=== PATIENT | female | born 1930 | race Caucasian/White ===

== ENCOUNTER 2019-05-28 08:39 | Inpatient (IN) | payer MEDICARE, BC ==
[~2019-05-28] VITALS: Ht 157.5 cm; Wt 78.0 kg
[2019-05-28] MEDS ORDERED: Meclizine 25mg tab ORAL ONE ×2 (08:45→09:45)
--- NOTE | 2019-05-28 08:47 | NUR ---
ED Nurse Note: Pt brought in with ambulance from home. Pt c/o N&V since 0700 and has vomited 4 times. Pt states she has no pain. Pt states she is extremely dizzy. Pt set up on monitor. VSS.
[2019-05-28 08:56] LABS: BASOPHILS % (AUTO) 0.5 % (0.0-2.0); EOSINOPHILS % (AUTO) 1.3 % (0.0-3.0); HEMATOCRIT 40.6 % (37.0-47.0); HEMOGLOBIN 13.7 G/DL (12.0-16.0); LYMPHOCYTES % (AUTO) 11.6 % (20.0-45.0); MEAN CORPUSCULAR VOLUME 96 FL (80-99); MONOCYTES % (AUTO) 4.7 % (1.0-10.0); NEUTROPHILS % (AUTO) 81.9 % (45.0-75.0); PLATELET COUNT 268 K/UL (150-450); RED BLOOD COUNT 4.24 M/UL (4.20-5.40); RED CELL DISTRIBUTION WIDTH 11.8 % (11.6-14.8); WHITE BLOOD COUNT 11.2 K/UL (4.8-10.8)
[2019-05-28 08:57] VITALS: BP 131/102
[2019-05-28] MEDS ORDERED: LISINOPRIL30 MG ORAL (09:03)
[2019-05-28] MEDS ORDERED: CRESTOR10 M2 ORAL (09:03)
[2019-05-28] MEDS ORDERED: BYSTOLIC2.5 MG ORAL (09:03)
--- NOTE | 2019-05-28 09:04 | NUR ---
ED Nurse Note: XR at bedside. Pt being taken to CT via gurney.
[2019-05-28 09:20] LABS: ANION GAP 12 mmol/L (5-15); BLOOD UREA NITROGEN 18 mg/dL (7-18); CALCIUM 8.8 MG/DL (8.5-10.1); CARBON DIOXIDE 21 MMOL/L (21-32); CHLORIDE 110 MMOL/L (98-107); CREATININE 0.8 MG/DL (0.55-1.30); POTASSIUM 3.8 MMOL/L (3.5-5.1); SODIUM 143 MMOL/L (136-145)
[2019-05-28 09:25] LABS: ALANINE AMINOTRANSFERASE 25 U/L (12-78); ALBUMIN 3.5 G/DL (3.4-5.0); ALBUMIN/GLOBULIN RATIO 1.1 (1.0-2.7); ASPARTATE AMINO TRANSFERASE 21 U/L (15-37); BILIRUBIN,TOTAL 0.5 MG/DL (0.2-1.0)
[2019-05-28 09:35] LABS: APPEARANCE,URINE SLIGHTLY CLOUDY; BILIRUBIN, URINE NEGATIVE (NEGATIVE); GLUCOSE, URINE (UA) 1+ (NEGATIVE); KETONES,URINE 2+ (NEGATIVE); LEUKOCYTE ESTERASE ,URINE 1+ (NEGATIVE); NITRITE,URINE NEGATIVE (NEGATIVE); PH,URINE 5 (4.5-8.0); PROTEIN,URINE 1+ (NEGATIVE); UROBILINOGEN,URINE NORMAL MG/DL (0.0-1.0)
--- NOTE | 2019-05-28 09:35 | NUR ---
ED Nurse Note: MD notified that pt vomiting/retching.
[2019-05-28] MEDS ORDERED: TransDerm Scop 1.5mg/72HR Patch TDERMAL ONE (09:45)
--- NOTE | 2019-05-28 09:48 | Diagnostic Imaging Report ---
Indication: Headache Technique: Contiguous 5 mm thick transaxial imaging of the head obtained in a Siemens Sensation [address] scanner. Soft tissue and bone windows generated. Automatic Exposure Control was utilized. Total Dose length Product (DLP): 1269.[address] Dose Index Volume (CTDIvol): 62.7 mGy Comparison: none Findings: There is moderate prominence of the ventricles, basal cisterns, and cerebral sulci consistent with atrophy. Moderate, nonspecific, white matter hypoattenuation is noted throughout the brain consistent with chronic small vessel disease. There is no midline shift, edema, acute hemorrhage, mass effect, or abnormal extra-axial fluid collections. Bones are unremarkable. Impression: No acute intracranial bleed, mass effect or edema. Moderate atrophy of the brain. Evidence of chronic small vessel disease involving white matter tracts. The CT scanner at [facility] is accredited by the [employer] and the scans are performed using dose optimization techniques as appropriate to a performed exam including Automatic Exposure control.
--- NOTE | 2019-05-28 09:49 | Emergency Room Report ---
History of Present Illness General Chief Complaint: Dizziness Source: Patient Present Illness HPI This patient is brought in accompanied by her daughter. This morning around 6: 30 AM she began reading and suddenly developed a spinning sensation with nausea and vomiting. Since that time she has had the same spinning with recurrent episodes of nausea and vomiting. She states that her nausea is persistent. She has never had symptoms like this in the past. She denies weakness. She denies headache. She denies chest pain or shortness of breath. She denies neck pain. She has no other complaints. Allergies: Coded Allergies: PENICILLINS (Unverified Allergy, Unknown, 05/28/19) Patient History Past Medical History: see triage record, HTN, other - HLP Social History: Denies: smoking, alcohol use, drug use Reviewed Nursing Documentation: PMH: Agreed; PSxH: Agreed Nursing Documentation-PMH Past Medical History: No History, Except For Hx Cardiac Problems: Yes - high cholesterol Hx Hypertension: Yes Review of Systems All Other Systems: negative except mentioned in HPI Physical Exam Vital Signs Date Time Temp Pulse Resp B/P (MAP) Pulse Ox O2 Delivery O2 Flow Rate FiO2 05/28/19 08:34 97.3 78 18 140/88 (105) 99 Room Air 05/28/19 09:00 100 Sp02 EP Interpretation: reviewed, normal General Appearance: no apparent distress, alert, GCS 15, non-toxic Head: normocephalic, atraumatic Eyes: bilateral eye normal inspection, bilateral eye PERRL ENT: hearing grossly normal, normal pharynx, no angioedema, normal voice Neck: full range of motion, supple/symm/no masses Respiratory: chest non-tender, lungs clear, normal breath sounds, no respiratory distress, no retraction, no accessory muscle use, speaking full sentences Cardiovascular #1: regular rate, rhythm, no edema Gastrointestinal: normal bowel sounds, non tender, soft, non-distended, no guarding, no rebound Rectal: deferred Musculoskeletal: normal inspection, back normal, normal range of motion, non- tender Neurologic: alert, motor strength/tone normal, oriented x3, sensory intact, responsive, speech normal, other - Unable to fully assess cerebellar as any movement causes the patient to vomit. Psychiatric: judgement/insight normal, memory normal, mood/affect normal, no suicidal/homicidal ideation Skin: no rash, normal color Medical Decision Making Diagnostic Impression: Primary Impression: Vertigo Additional Impression: Hyperglycemia ER Course This patient is found to be hyperglycemic with a blood sugar over 200. Further discussion with her primary care physician and she has never had elevated blood sugars in the past. This could be new onset diabetes. Further, the patient has severe vertigo and given the patient's age I am concerned that she will be unable to safely navigate her home. I am concerned she could fall and break her hip. She required multiple medications to treat her vertigo. CT of the head was obtained which is unremarkable. I did obtain an MRI brain Laboratory Tests Test 05/28/19 08:45 05/28/19 09:20 White Blood Count 11.2 K/UL (4.8-10.8) H Red Blood Count 4.24 M/UL (4.20-5.40) Hemoglobin 13.7 G/DL (12.0-16.0) Hematocrit 40.6 % (37.0-47.0) Mean Corpuscular Volume 96 FL (80-99) Mean Corpuscular Hemoglobin 32.4 PG (27.0-31.0) H Mean Corpuscular Hemoglobin Concent 33.8 G/DL (32.0-36.0) Red Cell Distribution Width 11.8 % (11.6-14.8) Platelet Count 268 K/UL (150-450) Mean Platelet Volume 6.3 FL (6.5-10.1) L Neutrophils (%) (Auto) 81.9 % (45.0-75.0) H Lymphocytes (%) (Auto) 11.6 % (20.0-45.0) L Monocytes (%) (Auto) 4.7 % (1.0-10.0) Eosinophils (%) (Auto) 1.3 % (0.0-3.0) Basophils (%) (Auto) 0.5 % (0.0-2.0) Prothrombin Time 10.8 SEC (9.30-11.50) Prothrombin Time INR 1.0 (0.9-1.1) PTT 22 SEC (23-33) L Sodium Level 143 MMOL/L (136-145) Potassium Level 3.8 MMOL/L (3.5-5.1) Chloride Level 110 MMOL/L (98-107) H Carbon Dioxide Level 21 MMOL/L (21-32) Anion Gap 12 mmol/L (5-15) Blood Urea Nitrogen 18 mg/dL (7-18) Creatinine 0.8 MG/DL (0.55-1.30) Estimate Glomerular Filtration Rate mL/min (>60) Glucose Level 216 MG/DL (74-106) H Calcium Level 8.8 MG/DL (8.5-10.1) Total Bilirubin 0.5 MG/DL (0.2-1.0) Aspartate Amino Transferase (AST) 21 U/L (15-37) Alanine Aminotransferase (ALT) 25 U/L (12-78) Alkaline Phosphatase 67 U/L (46-116) Troponin I 0.000 ng/mL (0.000-0.056) Total Protein 6.7 G/DL (6.4-8.2) Albumin 3.5 G/DL (3.4-5.0) Globulin 3.2 g/dL Albumin/Globulin Ratio 1.1 (1.0-2.7) Urine Color Yellow Urine Appearance Slightly cloudy Urine pH 5 (4.5-8.0) Urine Specific [place] 1.020 (1.005-1.035) Urine Protein 1+ (NEGATIVE) H Urine Glucose (UA) 1+ (NEGATIVE) H Urine Ketones 2+ (NEGATIVE) H Urine Blood 1+ (NEGATIVE) H Urine Nitrite Negative (NEGATIVE) Urine Bilirubin Negative (NEGATIVE) Urine Urobilinogen Normal MG/DL (0.0-1.0) Urine Leukocyte Esterase 1+ (NEGATIVE) H Urine RBC 2-4 /HPF (0 - 2) H Urine WBC 2-4 /HPF (0 - 2) Urine Squamous Epithelial Cells Few /LPF (NONE/OCC) Urine Bacteria Few /HPF (NONE) EKG Diagnostic Results Rate: normal Rhythm: NSR ST Segments: no acute changes Rhythm Strip Diag. Results EP Interpretation: yes Rate: 70's Rhythm: NSR, no PVC's, no ectopy Chest X-Ray Diagnostic Results Chest X-Ray Diagnostic Results : Chest X-Ray Ordered: Yes # of Views/Limited/Complete: 1 View Indication: Other EP Interpretation: Yes Interpretation: no consolidation, no effusion, no pneumothorax, no acute cardiopulmonary disease Impression: No acute disease Electronically Signed by: Elissa Fink, CT/MRI/US Diagnostic Results CT/MRI/US Diagnostic Results : Imaging Test Ordered: CT head, MRI Brain Impression No acute findings. Specifically no intracranial bleed, mass effect or edema. See official report. Last Vital Signs Date Time Temp Pulse Resp B/P (MAP) Pulse Ox O2 Delivery O2 Flow Rate FiO2 05/28/19 09:00 69 16 Room Air 100 05/28/19 08:57 97.3 131/102 98 Disposition: ADMITTED INPATIENT Condition: Stable Referrals: NON PHYSICIAN (PCP) Elissa Fink DO May 28, 2019 09:49
[2019-05-28 09:55] LABS: ALKALINE PHOSPHATASE 67 U/L (46-116)
[2019-05-28 09:56] LABS: COLOR,URINE YELLOW
[2019-05-28] MEDS ORDERED: Metoclopramide 10mg/2ml Inj IVP ONE (10:00)
--- NOTE | 2019-05-28 10:10 | NUR ---
ED Nurse Note: patient taken to MRI in a rney with Aj MORRISSEY TECH
--- NOTE | 2019-05-28 11:00 | NUR ---
ED Nurse Note: patient transferred back to room 5 without complication. daughter at bedside. patient back on the monitor.
--- NOTE | 2019-05-28 12:33 | Diagnostic Imaging Report ---
Indication: Dyspnea Comparison: None A single view chest radiograph was obtained. Findings: Cardiomediastinal appearance is within normal limits for age. The lungs are clear. Pulmonary vascularity is appropriate. The diaphragmatic contour is smooth and costophrenic angles are sharp. No pleural effusions are identified. The bones are osteopenic. Impression: No acute findings
--- NOTE | 2019-05-28 13:05 | NUR ---
ED Nurse Note: report given to Ade FISHER, endorsed all plan of care to Ade FISHER.
[2019-05-28 13:15] VITALS: BP 126/79
--- NOTE | 2019-05-28 13:15 | Diagnostic Imaging Report ---
Indication: Dizziness Technique: The head was imaged in a 1.5 Liz magnet. Sequences obtained include sagittal and axial T1 FLAIR, axial T2 fast spin echo with fat saturation, axial T2* GRE, axial T2 FLAIR, diffusion and ADC map. Comparison: None Findings: There is mild prominence of the sulci, ventricles, and basal cisterns consistent with atrophy. Mild, nonspecific T2 hyperintensity noted within white matter. This may be due to chronic small vessel disease. There is no restricted diffusion. Ugarte-white differentiation is normal. There is no mass effect, midline shift, edema, or hemorrhage. There are no abnormal extra-axial or intra-axial fluid collections. The corpus callosum and sella are unremarkable. The brainstem and cerebellum are unremarkable. Bone marrow signal within the visualized osseous structures appears age appropriate and unremarkable otherwise. There is minimal mucosal thickening within the visualized paranasal sinuses. Impression: No acute intracranial findings. Mild atrophy and evidence of chronic small vessel disease involving white matter tracts.
--- NOTE | 2019-05-28 13:30 | NUR ---
NURSE NOTES: Pt came up to unit via gurney w/daughter at bedside and all belongings accounted for. Pt A&Ox4, VSS, and in no apparent distress; IV site intact/asymptomatic & H/L'd and skin intact. Pt c/o dizziness when she changes position or attempts to ambulate. Oriented pt and family member to room and communicated to them that I would contact Dr. Tatum for admission orders. Will continue to monitor.
[2019-05-28] MEDS ORDERED: Meclizine 25mg tab ORAL PRN (14:00)
[2019-05-28 16:00] VITALS: BP 143/56
[2019-05-28] MEDS: Bystolic 2.5mg Tab ORAL SCH (17:42)
[2019-05-28] MEDS ORDERED: LORazepam Inj 2mg/ml 1ml IV SCH (19:15)
--- NOTE | 2019-05-28 19:15 | NUR ---
HAND-OFF: Report given to NATALIA Dash.
--- NOTE | 2019-05-28 19:18 | History & Physical ---
History and Physical History & Physicial [id number] Abebe Tatum MD May 28, 2019 19:18
--- NOTE | 2019-05-28 19:30 | NUR ---
NURSE NOTES: Received report & pt from NATALIA Booker. Pt lying in bed, a&ox4, in room air. No s/s of acute distress & no /co pain at this time. Skin intact. IV site intact & H/L'd. Bed in lowest position, bed alarm on, call light within reach. Will continue to monitor.
[2019-05-28] MEDS: Meclizine 25mg tab ORAL SCH (19:54)
[2019-05-28 20:00] VITALS: BP 122/65
[2019-05-28] MEDS: Atorvastatin 20mg tab ORAL SCH (20:05)
--- NOTE | 2019-05-28 20:15 | History and Physical Report ---
DATE OF ADMISSION: 05/28/2019 REASON FOR ADMISSION: Severe vertigo. HISTORY OF PRESENT ILLNESS: The patient is a very pleasant 88-year-old white female who has been in her usual state of health until today when she started to have some severe vertigo after she drank her coffee in the morning. At that point she describes as a severe vertigo and some imbalance associated with some nausea and vomiting, also has been having some daily diarrhea after she is drinking her coffee which is happening with a cream. She presented to the emergency room of [facility], underwent CT scan of the head which did not show any abnormalities, also subsequently underwent an MRI of the brain, which also did not show any signs of a stroke. She was given some meclizine and scopolamine and since she is still very unsteady and having the vertigo. It was decided to be admitted. The other factor that we found that in the ER was the fact that she had a blood sugar in the range of 216. She has never been known to be diabetic. PAST MEDICAL HISTORY: Significant for hypertension and hyperlipidemia. She also has had episodes of influenza few months ago associated with some pneumonia, also has had previous diverticulitis. PAST SURGICAL HISTORY: None. MEDICATIONS: Includes lisinopril 30 mg p.o. daily, Bystolic 5 mg p.o. daily, Crestor 10 mg p.o. at bedtime. ALLERGIES: Penicillin. SOCIAL HISTORY: Does not smoke. Does not drink alcohol. No drugs. She has three children. 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 FAMILY HISTORY: Noncontributory. REVIEW OF SYSTEMS: GENERAL: She has not had any significant weight change. Denies any chills, fever. CARDIOVASCULAR: Denies any chest pain, dyspnea with exertion or orthopnea. SKIN: Denies any rash or photosensitivity. MUSCULOSKELETAL: Denies any arthralgia or myalgia. URINARY: No urinary foaminess, hematuria, or dysuria. SKIN: Denies any rash or photosensitivity. NEUROLOGIC: She has had very impressive vertigo associated with some nausea and vomiting. GASTROINTESTINAL: Denies any melena or hematochezia. She has been having some daily diarrhea for the past 6 months, also some nausea and vomiting which happened today. ENDOCRINE: Never been diagnosed with diabetes mellitus. No polydipsia, polyuria, cold or heat intolerance. The remainder of the review of the systems has been essentially negative. PHYSICAL EXAMINATION: GENERAL: She does not seem to be in much acute distress. VITAL SIGNS: Blood pressure is 143/56, pulse of 62, respirations 18, temperature 97.3 HEENT: Head is atraumatic. Eyes, pupils are reactive to light. No evidence of papilledema. Ears, canals are clear. Tympanic membranes are intact. Nose, nares are patent. Denies any nasal discharge. Throat without inflammation or exudates. NECK: Supple. Jugular venous distention is within normal limits. No cervical adenopathy. No thyromegaly. HEART: Regular rhythm. No gallop. LUNGS: Clear to auscultation. ABDOMEN: Supple. Bowel sounds positive. No hepatosplenomegaly. EXTREMITIES: Lower extremity shows no cyanosis or clubbing. No pedal edema. NEUROLOGICAL: Moving her head is causing nystagmus towards the right side. Deep tendon reflexes are symmetrically present. There is no focal neurological deficit present otherwise. LABORATORY DATA: Showing a sodium 143, potassium 3.8, chloride 110, carbon dioxide 21, BUN is 12, glucose 216, calcium 8.8. LFTs within normal range. WBC 11.2, hemoglobin is 13.7, hematocrit 40.6, and platelets of 268. Urinalysis is showing 2 to 4 rbc's, 2 to 4 wbc's, specific gravity 1.020, pH of 5, and 1+ protein. IMPRESSION: 1. Impressive vertigo most likely peripheral vertigo. I am suspecting labyrinthitis versus benign positional vertigo. Meniere disease needs to be ruled out which is less likely. 2. She has some degree of hyperglycemia consistent with possible underlying diabetes mellitus. 3. Hypertension which is well controlled. PLAN: I am going to give her a dose of Ativan 0.5 mg IV just one time dose. We are going to start her on some normal saline with 40 mEq of KCl per liter at 50 mL/hour. She is going to be put on scheduled meclizine 25 mg every 6 hours and I am going to also check a hemoglobin A1c on her. Hopefully she can be discharged soon. After her discharge, she needs to follow up with ENT specialist. Abebemarimar Tatum M.D. DR: Karl JOB#: [id number] CC:
[2019-05-28] MEDS: D5NS w/KCl 40mEq 1000ml 1,000 ML IV SCH (20:55)
[2019-05-29] VITALS: BP 124/57
[2019-05-29] MEDS: Meclizine 25mg tab ORAL SCH ×4 (01:15→18:14)
[2019-05-29 04:00] VITALS: BP 141/60
[2019-05-29 06:14] LABS: BASOPHILS % (AUTO) 0.9 % (0.0-2.0); EOSINOPHILS % (AUTO) 3.1 % (0.0-3.0); HEMATOCRIT 36.1 % (37.0-47.0); HEMOGLOBIN 12.2 G/DL (12.0-16.0); LYMPHOCYTES % (AUTO) 14.9 % (20.0-45.0); MEAN CORPUSCULAR VOLUME 96 FL (80-99); MONOCYTES % (AUTO) 9.7 % (1.0-10.0); NEUTROPHILS % (AUTO) 71.4 % (45.0-75.0); PLATELET COUNT 226 K/UL (150-450); RED BLOOD COUNT 3.76 M/UL (4.20-5.40); RED CELL DISTRIBUTION WIDTH 11.8 % (11.6-14.8); WHITE BLOOD COUNT 7.2 K/UL (4.8-10.8)
[2019-05-29 06:39] LABS: ALANINE AMINOTRANSFERASE 22 U/L (12-78); ALBUMIN 3.1 G/DL (3.4-5.0); ALBUMIN/GLOBULIN RATIO 1.1 (1.0-2.7); ALKALINE PHOSPHATASE 57 U/L (46-116); ANION GAP 10 mmol/L (5-15); ASPARTATE AMINO TRANSFERASE 19 U/L (15-37); BILIRUBIN,TOTAL 0.4 MG/DL (0.2-1.0); BLOOD UREA NITROGEN 15 mg/dL (7-18); CALCIUM 8.4 MG/DL (8.5-10.1); CARBON DIOXIDE 24 MMOL/L (21-32); CHLORIDE 113 MMOL/L (98-107); CREATININE 0.7 MG/DL (0.55-1.30); SODIUM 147 MMOL/L (136-145)
--- NOTE | 2019-05-29 07:25 | NUR ---
HAND-OFF: Report given to NATALIA Booker. Pt in stable condition.
--- NOTE | 2019-05-29 07:30 | NUR ---
NURSE NOTES: Pt lying in bed w/bed in lowest position and call light within reach. Pt A&Ox4, VSS, and in no apparent distress; pt presently denies any dizziness. IV site intact/asymptomatic w/IVF infusing and skin intact. Will continue to monitor.
[2019-05-29 08:00] VITALS: BP 138/68
[2019-05-29] MEDS: Bystolic 2.5mg Tab ORAL SCH ×2 (08:41→18:14)
[2019-05-29] MEDS: Lisinopril 10mg tab ORAL SCH (08:41)
[2019-05-29 11:45] VITALS: BP 149/72
--- NOTE | 2019-05-29 13:07 | Cardiology Report ---
APPROVED REPORT EKG Measurement Heart [id number] MD [id number] Normal sinus rhythm Normal ECG
--- NOTE | 2019-05-29 16:01 | NUR ---
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 97.4 HR 78 RR 18 B/P 140/88 WBC 11.2 GLU 216 UA+ PROTEIN, KETONES,BLOOD,LEUKOCYTE ESTERASE,RBC,WBC BACTERIA HEAD CT- NEGATIVE BRAIN MRI= NEGATIVE CXR= NO ACUTE PROCESS IS: MECLIZINE IV BOLUS NS X 50OML ADMITTED TO MED/SURG@ 1307 MED/SURG STATUS DCP RETURN HOME
[2019-05-29 16:12] VITALS: BP 139/65
--- NOTE | 2019-05-29 16:42 | General Progress Note ---
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 Metformin 500 mg po BID Hope D/C in AM Subjective Allergies: Coded Allergies: PENICILLINS (Unverified Allergy, Unknown, 05/28/19) Subjective She is still unsteady on her feet, no more nasea, HGB A1C was 6.3% Objective Last 24 Hour Vital Signs Date Time Temp Pulse Resp B/P (MAP) Pulse Ox O2 Delivery O2 Flow Rate FiO2 05/29/19 16:12 98.9 62 19 139/65 (89) 95 05/29/19 11:45 98.5 64 21 149/72 (97) 99 05/29/19 09:00 Room Air 05/29/19 08:41 138/68 05/29/19 08:00 97.8 84 16 138/68 (91) 95 05/29/19 04:00 98.1 61 16 141/60 (87) 93 05/29/19 00:00 98.0 74 16 124/57 (79) 95 05/28/19 21:00 Room Air 05/28/19 20:00 97.3 81 18 122/65 (84) 93 Intake and Output 05/28/19 05/29/19 19:00 07:00 Intake Total 980 ml 740 ml Balance 980 ml 740 ml Intake Oral 480 ml 240 ml IV Total 500 ml 500 ml # Voids 1 3 Laboratory Tests 05/29/19 04:45: White Blood Count 7.2, Red Blood Count 3.76L, Hemoglobin 12.2, Hematocrit 36.1L , Mean Corpuscular Volume 96, Mean Corpuscular Hemoglobin 32.6H, Mean Corpuscular Hemoglobin Concent 34.0, Red Cell Distribution Width 11.8, Platelet Count 226, Mean Platelet Volume 6.1L, Neutrophils (%) (Auto) 71.4, Lymphocytes ( %) (Auto) 14.9L, Monocytes (%) (Auto) 9.7, Eosinophils (%) (Auto) 3.1H, Basophils (%) (Auto) 0.9, Sodium Level 147H, Potassium Level 4.0, Chloride Level 113H, Carbon Dioxide Level 24, Anion Gap 10, Blood Urea Nitrogen 15, Creatinine 0.7, Estimat Glomerular Filtration Rate , Glucose Level 107#H, Hemoglobin A1c 6.3H, Calcium Level 8.4L, Total Bilirubin 0.4, Aspartate Amino Transf (AST/SGOT) 19, Alanine Aminotransferase (ALT/SGPT) 22, Alkaline Phosphatase 57, Total Protein 5.9L, Albumin 3.1L, Globulin 2.8, Albumin/ Globulin Ratio 1.1 Height (Feet): 5 Height (Inches): 2.00 Weight (Pounds): 150 General Appearance: WD/WN, no apparent distress EENT: PERRL/EOMI Neck: non-tender Cardiovascular: normal peripheral pulses, no JVD Respiratory/Chest: lungs clear, normal breath sounds Abdomen: normal bowel sounds, non tender Extremities: normal range of motion Neurologic: other - Vertigo, nystagmus Abebe Brower MD May 29, 2019 16:42
[2019-05-29] MEDS: D5NS w/KCl 40mEq 1000ml 1,000 ML IV SCH (17:10)
[2019-05-29] MEDS: metFORMIN 500mg tab ORAL SCH (18:11)
--- NOTE | 2019-05-29 19:36 | NUR ---
HAND-OFF: Report given to NATALIA Dash.
--- NOTE | 2019-05-29 19:37 | NUR ---
NURSE NOTES: Received report & pt from NATALIA Booker. Pt lying in bed, a&ox4, in room air. No s/s of acute distress & no c/o pain at this time. Skin intact. IV site intact & H/L'd. Bed in lowest position, bed alarm on, call light within reach. Will continue to monitor.
[2019-05-29 20:00] VITALS: BP 122/62
[2019-05-29] MEDS: Atorvastatin 20mg tab ORAL SCH (21:19)
[2019-05-30] VITALS: BP 103/66
[2019-05-30] MEDS: Meclizine 25mg tab ORAL SCH ×3 (01:00→13:46)
[2019-05-30 04:00] VITALS: BP 154/68
--- NOTE | 2019-05-30 07:39 | NUR ---
HAND-OFF: Report given to Orin FISHER.Rounding done
--- NOTE | 2019-05-30 07:48 | NUR ---
NURSE NOTES: Received report from Ekta FISHER. pt a/a/o x4 laying in bed with no signs of distress or other issues at this time. IV on the right FA gauge#24 heplock. no skin issues. pt is able to ambulate around the unit with steady gait. surgical dressing dry and intact. call light within reach, bed in lowest position. side rales up x2. plan to d/c home today. I will f/u as needed.
[2019-05-30 08:00] VITALS: BP 138/54
[2019-05-30] MEDS: metFORMIN 500mg tab ORAL SCH (08:55)
[2019-05-30] MEDS: Lisinopril 10mg tab ORAL SCH (08:55)
[2019-05-30] MEDS: Bystolic 2.5mg Tab ORAL SCH (08:55)
--- NOTE | 2019-05-30 11:53 | NUR ---
P.T Note: P.T evaluation completed and tx initiated. Please refer to P.T evaluation for current functional status. Pt is alert, O x 4 , pleasant and cooperative. Pt denied c/o pain but reports generalized weakness and dizziness spells affecting her balance and mobility performance. Pt. required SBA x 1 for bed mobilities, CGA x 1 for transfers and gait using the FWW. Skilled P.T service is warranted to improve on her strength , endurance and balance to increase mobility independence and safety. Recommend home P.T for safety follow up and use of FWW until stable. Pt is cleared for OOB activities with nursing assist.
[2019-05-30 12:00] VITALS: BP 124/48
--- NOTE | 2019-05-30 13:37 | NUR ---
RD ASSESSMENT & RECOMMENDATIONS SEE CARE ACTIVITY FOR COMPLETE ASSESSMENT DAILY ESTIMATED NEEDS: Needs based on DM, Cardiac, advanced age; 57kg adj 25-30 kcals/kg 1425- 1710 total kcals 1-1.5 g protein/kg 57- 86 g total protein 20-25 mL/kg 1140- 1425 total fluid mLs NUTRITION DIAGNOSIS: * Altered nutrition related lab values r/t diabetes/prediabetes AEB A1C 6.3, uglu 1+, acetone (+), BG (107 216). [facility] PO DIET RECOMMENDATIONS: JAYA, [facility] LOW ADDITIONAL RECOMMENDATIONS: 1) Maintain calibrated bedscale wt 2) Provide low carb, high protein snacks in b/w meals 3) Provided DM diet edu (05/30); d/w NATALIA
--- NOTE | 2019-05-30 14:45 | General Progress Note ---
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 Metformin 500 mg po BID Hope D/C in AM Subjective Allergies: Coded Allergies: PENICILLINS (Unverified Allergy, Unknown, 05/28/19) Subjective She is much less dizzy, feels that she can go home, tolerates Metformin Objective Last 24 Hour Vital Signs Date Time Temp Pulse Resp B/P (MAP) Pulse Ox O2 Delivery O2 Flow Rate FiO2 05/30/19 12:00 97.8 57 18 124/48 (73) 94 05/30/19 09:00 Room Air 05/30/19 08:55 138/54 05/30/19 08:00 97.8 63 20 138/54 (82) 96 05/30/19 04:00 98.0 66 17 154/68 (96) 95 05/30/19 00:00 97.7 64 16 103/66 (78) 96 05/29/19 21:00 Room Air 05/29/19 20:00 98.1 60 18 122/62 (82) 96 05/29/19 16:12 98.9 62 19 139/65 (89) 95 Intake and Output 05/29/19 05/30/19 18:59 06:59 Intake Total 930 ml 360 ml Balance 930 ml 360 ml Intake Oral 480 ml 360 ml IV Total 450 ml # Voids 5 3 Height (Feet): 5 Height (Inches): 2.00 Weight (Pounds): 172 General Appearance: WD/WN EENT: PERRL/EOMI Neck: non-tender, normal alignment Cardiovascular: normal rate, regular rhythm Respiratory/Chest: chest wall non-tender, lungs clear Abdomen: normal bowel sounds, non tender, soft Pelvis: normal external exam Extremities: normal range of motion Abebe Tatum MD May 30, 2019 14:45
--- NOTE | 2019-05-30 15:20 | NUR ---
NURSE NOTES: Received order to d/c home. d/c instruction and belonging list given to patient. MD also given RX for Metformin. MD also explained to patient that needs to f/u with her PCP as well as a ENT MD outpatient, pt verbalized understanding. IV removed prior to d/c. patient left the floor with no signs of distress or other issues at this time. pt's daughter will provide transportation.
--- NOTE | 2019-05-31 03:15 | Discharge Summary ---
DATE OF ADMISSION: 05/28/2019 DATE OF DISCHARGE: 05/30/2019 DIAGNOSES OF DISCHARGE: 1. Peripheral vertigo most likely due to benign positional vertigo. 2. Hypertension. 3. Discovery of type 2 diabetes mellitus. Seems to be in borderline controlled. HISTORY AND PHYSICAL AND HOSPITAL COURSE: For details, please refer to the History and Physical dictated in the chart. This is a very pleasant 88-year-old white female, who has been in her usual state of health. She has a history of hypertension. Started to have a very impressive vertigo associated with some nausea, vomiting, and dizziness, and imbalance, presented to the emergency room of [facility] where she was evaluated. The blood work showed evidence of a blood sugar of 216, which was compatible with type 2 diabetes mellitus. Also, a CT scan of the head was negative. MRI of the brain also was negative. Moving her head is causing horizontal nystagmus to the right side compatible with vestibular dysfunction. She was admitted for observation and the course of hospitalization was significant for the fact that we checked also hemoglobin A1c on her which was in the range of 6.3%. Also, she was started on scheduled dose of Antivert 25 mg every 6 hours. Since the hemoglobin A1c was somewhat elevated, we started her on metformin 500 mg p.o. twice a day that she has been tolerating. She also received some intravenous fluids during the course of hospitalization. With these measures, her dizziness and imbalance improved to a great degree and her blood sugars have been in the range of 80 to 90. 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 She is going to be discharging home today in stable condition with a promise to see ENT as outpatient. Also taking her metformin 500 mg p.o. b.i.d. and follow up with the primary care physician as outpatient. Abebe Tatum M.D. DR: KATHY JOB#: [id number] CC:
== END 2019-05-30 15:20 | disposition home or self-care (01) | DRG 149 ==
LOC: EDBD 08:39 → EMR 09:02 → 3E 11:56 → EDBEDREQ 12:43 → 3E 13:37
DX: H81.10 Benign paroxysmal vertigo, unspecified ear (principal); E11.65 Type 2 diabetes mellitus with hyperglycemia; Z88.0 Allergy status to penicillin; I10 Essential (primary) hypertension; E78.5 Hyperlipidemia, unspecified
CPT/HCPCS: 36415; 70450; 70551; 71045; 80053; 81003; 82962; 83036; 84484; 85025; 85610; 85730; 93005; 96374; 99285; J2765